=== PATIENT | female | born 1965 | race Caucasian/White ===

== ENCOUNTER 2016-10-23 19:48 | Emergency (ER) | payer MEDICAID, OTHER ==
[2016-10-23] MEDS ORDERED: Adacel (T-DAP) 0.5 ML VIAL ONE (20:12)
[2016-10-23] MEDS ORDERED: Clindamycin 150 MG CAP ONE (20:13)
[2016-10-23] MEDS ORDERED: Triple Antibiotic Oint 1 GM Packet ONE (20:13)
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
== END 2016-10-23 20:55 | disposition home or self-care (01) ==
LOC: MADERS 19:48
DX: S61.012A Laceration without foreign body of left thumb without damage to nail, initial encounter (principal); I10 Essential (primary) hypertension; F17.210 Nicotine dependence, cigarettes, uncomplicated; E03.9 Hypothyroidism, unspecified; W53.11XA Bitten by rat, initial encounter
CPT/HCPCS: 90471; 90715

== ENCOUNTER 2016-11-11 13:46 | Outpatient (CLI) | payer OTHER | END 2016-11-11 13:47 | LOC: MADLABBHPM 13:46 | PROVIDERS: ATTEND Family Medicine | DX: E03.9 Hypothyroidism, unspecified (principal) | CPT/HCPCS: 36415; 84443 ==

== ENCOUNTER 2017-03-10 01:32 | Emergency (ER) | payer OTHER ==
[2017-03-10] MEDS ORDERED: Ondansetron HCl/PF 4 MG/2 ML Vial ONE (02:10)
[2017-03-10] MEDS ORDERED: Ketorolac Tromethamine 30 MG/ML VIAL ONE (02:10)
[2017-03-10 02:12] LABS: #Basophils 0.1 thou/uL (0.0-0.2); #Eosinphils 0.1 thou/uL (0.0-0.7); #Lymphocytes 1.6 thou/uL (1.20-3.40); #Monocytes 0.8 thou/uL (0.11-0.59); #Neutrophils 13.3 thou/uL (1.40-6.50); %Basophils 0.6 % (0.0-1.0); %Eosinophils 0.8 % (0.0-10.0); %Monocytes 4.9 % (0.0-10.0); %Neutrophils 83.7 % (42.0-75.0); Hemoglobin 14.8 g/dL (12.0-16.0); Mean Corpuscular HGB CONC 33.3 g/dL (32.0-36.0); Mean Corpuscular Hemoglobin 30.5 pg (27.0-31.0); Mean Corpuscular Volume 91.4 fl (81.0-99.0); Mean Platelet Volume 6.4 fL (7.4-10.4); Platelet Count 258 thou/uL (130-400); Red Blood Cell (RBC) Count 4.88 mill/uL (4.20-5.40); White Blood Cell (WBC) Count 15.9 thou/uL (4.8-10.8)
[2017-03-10 02:28] LABS: Bilirubin Negative (Negative); Clarity Hazy (Clear); Glucose, Urine (Dipstick) 100 mg/dL (Negative); Leukocyte Negative (Negative); Nitrite Negative (Negative); Protein, Urine (Dipstick) Negative (Neg-Trace); Specific Gravity, Urine 1.026 (1.002-1.036); Urobilinogen 0.2 mg/dL (0.2-1.0)
[2017-03-10 02:29] LABS: Blood, Urine Negative (Negative)
[2017-03-10 02:29] LABS: ALT (SGPT) 25 U/L (8-55); AST (SGOT) 21 U/L (5-34); Acetaminophen Less than 6.0 mcg/mL (10.0-30.0); Albumin 4.4 g/dL (3.5-5.0); Alcohol 15 mg/dL (Less than 10); Alkaline Phosphatase 68 U/L (40-150); Anion Gap 18 mmol/L (10-20); BUN (Urea Nitrogen) 21 mg/dL (9.8-20.1); Bilirubin, Total 0.5 mg/dL (0.2-1.2); Calc. Creatinine Clearance 0 mL/min (70-130); Calcium 9.2 mg/dL (7.8-10.44); Carbon Dioxide 21 mmol/L (22-29); Chloride 103 mmol/L (98-107); Estimated GFR-MDRD 66; Globulin 3.2 g/dL (2.4-3.5); Glucose 176 mg/dL (70-105); Lipase 44 U/L (8-78); Potassium 3.4 mmol/L (3.5-5.1); Protein, Total 7.6 g/dL (6.0-8.3); Salicylate Less than 8.0 mg/dL (15.0-30.0); Sodium 139 mmol/L (136-145)
[2017-03-10 02:31] LABS: Amphetamine Detected (NotDetected); Barbiturates Screen Not Detected (NotDetected); Benzodiazepine Screen Not Detected (NotDetected); Cocaine Metabolite Screen Not Detected (NotDetected); Medtox Control Line Valid? VALID (VALID); Methadone Not Detected (NotDetected); Methamphetamine Detected (NotDetected); Opiate Screen Not Detected (NotDetected); Oxycodone Screen Not Detected (NotDetected); Phencyclidine (PCP) Not Detected (NotDetected); THC/Cannabinoid Screen Not Detected (NotDetected); Tricyclic Screen Not Detected (NotDetected)
[2017-03-10 02:34] LABS: Bacteria/HPF Rare-Few HPF (None Seen); RBC/HPF 0-3 HPF (0-3); WBC/HPF 0-3 HPF (0-3)
[2017-03-10] MEDS ORDERED: Triple Antibiotic Oint 1 GM Packet ONE (03:57)
[2017-03-10] MEDS ORDERED: Ciprofloxacin 500 MG TAB ONE (04:20)
[2017-03-10] MEDS ORDERED: Sodium Chloride Irrig Solution 250 ML BOT ONE (07:33)
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
== END 2017-03-10 05:00 | disposition home or self-care (01) ==
LOC: MADERS 01:32
DX: S52.201A Unspecified fracture of shaft of right ulna, initial encounter for closed fracture (principal); S01.01XA Laceration without foreign body of scalp, initial encounter; I10 Essential (primary) hypertension; E03.9 Hypothyroidism, unspecified; K74.60 Unspecified cirrhosis of liver; F17.210 Nicotine dependence, cigarettes, uncomplicated; Z79.899 Other long term (current) drug therapy; W22.8XXA Striking against or struck by other objects, initial encounter
CPT/HCPCS: 12001; 29125; 36415; 70450; 71010; 72125; 72128; 80053; 80306; 80307; 81001; 83690; 85025; 87086; 96374; 96375; 96376; J1885; J2270; J2405

== ENCOUNTER 2017-04-08 16:31 | Emergency (ER) | payer OTHER ==
[~2017-04-08 16:31] MED LIST: Sodium Chloride Irrig Solution 250 ML BOT ONE
== END 2017-04-08 17:20 | disposition home or self-care (01) ==
LOC: MADERS 16:31
DX: S01.01XD Laceration without foreign body of scalp, subsequent encounter (principal); I10 Essential (primary) hypertension; F17.210 Nicotine dependence, cigarettes, uncomplicated; Z79.899 Other long term (current) drug therapy; X58.XXXD Exposure to other specified factors, subsequent encounter

== ENCOUNTER 2017-04-27 15:49 | Emergency (ER) | payer OTHER ==
[2017-04-27] MEDS ORDERED: Adacel (T-DAP) 0.5 ML VIAL ONE (16:32)
== END 2017-04-27 16:30 | disposition home or self-care (01) ==
LOC: MADERS 15:49
DX: L03.116 Cellulitis of left lower limb (principal); I10 Essential (primary) hypertension; E03.9 Hypothyroidism, unspecified; K74.60 Unspecified cirrhosis of liver
CPT/HCPCS: 90471; 90715

== ENCOUNTER 2017-05-21 12:26 | Outpatient (CLI) | payer OTHER ==
--- NOTE | 2017-05-21 15:50 | RAD ---
RIGHT FOREARM TWO VIEW 05/21/17 HISTORY: Fracture. Evaluate healing. COMPARISON: 03/24/17 FINDINGS: There is exuberant callus formation along the healing mid radial diaphyseal fracture. There are luce ncies along the proximal most two screws as well as lucency around the fourth screw. There is interf ragmentary screws present. The callus formation along the proximal one half fracture is greater than the distal one half. IMPRESSION: Findings suggestive of loosening of the hardware with lucencies around the proximal two screws and t he fourth screw with exuberant periosteal new bone formation proximally greater than distally. There is, however, bridging callus formation and evidence of healing. The healing is as expected for the amount of time since fracture. POS: [facility]
== END 2017-05-21 12:27 | disposition home or self-care (01) ==
LOC: MADRAD 12:26
PROVIDERS: ATTEND Orthopaedic Surgery
DX: S52.224D Nondisplaced transverse fracture of shaft of right ulna, subsequent encounter for closed fracture with routine healing (principal)

== ENCOUNTER 2017-07-08 16:50 | Emergency (ER) | payer OTHER ==
--- NOTE | 2017-07-08 19:45 | RAD ---
TWO VIEWS RIGHT FOREARM 07/08/17 HISTORY: Post surgery four months ago. Patient is having pain. COMPARISON: 05/21/17. FINDINGS: Again noted are postsurgical changes related to internal fixation of the fracture of the mid diaphys is of the ulna. Plate and screws again transfix this region. There is a greater degree of callus for mation suggesting continued interval healing when compared to the prior exam. There is no acute frac ture or dislocation. No hardware complication is seen. IMPRESSION: Internal fixation of fracture mid diaphysis right ulna. Degree of callus formation has increased fro m the prior study consistent with continued interval healing. POS: [facility]
== END 2017-07-08 17:35 | disposition home or self-care (01) ==
LOC: MADERS 16:50
DX: G97.82 Other postprocedural complications and disorders of nervous system (principal); G56.91 Unspecified mononeuropathy of right upper limb; I10 Essential (primary) hypertension; E03.9 Hypothyroidism, unspecified; K74.60 Unspecified cirrhosis of liver

== ENCOUNTER 2019-12-06 10:12 | Outpatient (CLI) | payer OTHER ==
[2019-12-06 11:02] LABS: ALT (SGPT) 24 U/L (8-55); AST (SGOT) 18 U/L (5-34); Albumin 4.7 g/dL (3.5-5.0); Alkaline Phosphatase 72 U/L (40-110); Anion Gap 16 mmol/L (10-20); BUN (Urea Nitrogen) 20 mg/dL (9.8-20.1); Bilirubin, Total 0.8 mg/dL (0.2-1.2); Calc. Creatinine Clearance 0 mL/min (70-130); Calcium 9.6 mg/dL (7.8-10.44); Carbon Dioxide 26 mmol/L (22-29); Chloride 99 mmol/L (98-107); Estimated GFR-MDRD 48; Globulin 3.6 g/dL (2.4-3.5); Glucose 147 mg/dL (70-105); Potassium 4.4 mmol/L (3.5-5.1); Protein, Total 8.3 g/dL (6.0-8.3); Sodium 137 mmol/L (136-145)
[2019-12-06 19:07] LABS: Hep C IgG Ab Reflex HepC Qnt (NonReactive); Hep C Index 12.36 S/CO (0-0.79)
== END 2019-12-06 10:13 | disposition home or self-care (01) ==
LOC: MADLABBHPM 10:12
PROVIDERS: ATTEND Family Medicine
DX: Z01.818 Encounter for other preprocedural examination (principal); B19.20 Unspecified viral hepatitis C without hepatic coma
CPT/HCPCS: 36415; 80053; 86803; 87522